=== PATIENT | male | born 1975 | race Caucasian/White ===

== ENCOUNTER 2020-11-07 19:16 | Emergency (ER) | payer OTHER ==
[2020-11-07] MEDS ORDERED: ONDANSETRON 4 MG/2 ML VIAL IVPUSH ONE (19:35)
[2020-11-07] MEDS ORDERED: LACTATED RINGERS SOLUTION 1,000 ML IV STA ×2 (19:35→19:50)
[2020-11-07] MEDS ORDERED: ACETAMINOPHEN 1000 MG/100 ML VIAL (NON FORMULARY) IVPB ONE (19:35)
[2020-11-07 19:56] VITALS: BMI 26.7
[2020-11-07] MEDS ORDERED: ACETAMINOPHEN INJECTION 100 ML IVPB ONE (20:12)
[2020-11-07] MEDS ORDERED: ONDANSETRON 4 MG/2 ML VIAL ONE (20:12)
[2020-11-07 21:03] LABS: BASO % 0.3 % (0-2.0); HEMATOCRIT 42.6 % (35.4-49); HEMOGLOBIN 14.6 GM/dL (11.7-16.9); LYMPH % 8.2 % (8-40); MCH 29.5 pg (25.7-33.7); MCHC 34.2 g/dl (32.0-35.9); MEAN CELL VOLUME 86.1 fl (80-96); MEAN PLT VOLUME 9.3 fl (7.5-11.1); MONO % 6.1 % (3.8-10.2); NEUT % 85.4 % (42.8-82.8); PLATELET COUNT 304 K/MM3 (134-434); RBC 4.94 M/mm3 (4.00-5.60); RDW 13.3 % (11.9-15.9); WHITE BLOOD COUNT 7.2 K/mm3 (4.0-10.0)
[2020-11-07 21:10] LABS: INR 1.21 (0.83-1.09); PROTHROMBIN TIME (PATIENT) 14.8 SEC (9.7-13.0)
[2020-11-07 21:12] LABS: ACTIVATED PTT 33.2 SECONDS (25.2-36.5)
[2020-11-07 21:15] LABS: CHLORIDE 101 mmol/L (98-107); SODIUM 137 mmol/L (136-145)
[2020-11-07 21:17] LABS: ALBUMIN 3.5 g/dl (3.4-5.0); CALCIUM 8.5 mg/dL (8.5-10.1)
[2020-11-07 21:18] LABS: ANION GAP 10 MMOL/L (8-16); BLOOD UREA NITROGEN 13.6 mg/dL (7-18); CO2 27 mmol/L (21-32); GLUCOSE,RANDOM 103 mg/dL (74-106); LIPASE 120 U/L (73-393)
[2020-11-07 21:20] LABS: SGPT/ALT 43 U/L (13-61)
[2020-11-07 21:21] LABS: CREATININE 0.9 mg/dL (0.55-1.3); SGOT/AST 35 U/L (15-37)
[2020-11-07 21:22] LABS: BILIRUBIN,TOTAL 0.6 mg/dL (0.2-1); TOT PROT 7.6 g/dl (6.4-8.2)
[2020-11-07 21:23] LABS: ALK PHOS 66 U/L (45-117)
[2020-11-07] MEDS ORDERED: AZITHROMYCIN 500 MG TABLET PO ONE (22:05)
[2020-11-07] MEDS ORDERED: AZITHROMYCIN 250 MG TABLET ONE (22:18)
[2020-11-07 22:29] VITALS: BP 101/62; PULSE 86
[2020-11-07 22:34] VITALS: TEMP 98.1
== END 2020-11-07 23:00 | disposition home or self-care (01) ==
LOC: JER 19:16
PROC: 3E0333Z Introduction of Anti-inflammatory into Peripheral Vein, Percutaneous Approach (ICD-10-PCS; principal; 2020-11-07)
PROC: 3E033GC Introduction of Other Therapeutic Substance into Peripheral Vein, Percutaneous Approach (ICD-10-PCS; 2020-11-07)
DX: U07.1 COVID-19 (principal); J18.9 Pneumonia, unspecified organism
CPT/HCPCS: 36415; 71045-TC-FY; 80053; 82550; 82553; 83605; 83690; 84484; 85025; 85610; 85730; 93005; 93010; 99285-25; J0131